=== PATIENT | female | born 1960 | race Caucasian/White ===

== ENCOUNTER 2024-06-21 07:39 | Inpatient (IN) ==
[2024-06-21] MEDS ORDERED: IOPAMIDOL 100 ML BOTTLE IV ONE (07:40)
[2024-06-21] MEDS ORDERED: DIATRIZOATE MEGLU/DIATRIZO SOD 30 ML BOTTLE PO ONE (07:40)
[2024-06-21] MEDS: ONDANSETRON 4 MG/2 ML VIAL IV ONE ×3 (08:14→15:00)
[2024-06-21] MEDS: 0.9 % SODIUM CHLORIDE 1,000 ML IV ONE (08:14)
[2024-06-21] MEDS: LORazepam 2 MG/ML VIAL IV ONE (08:15)
[2024-06-21] MEDS: METOCLOPRAMIDE 10 MG/2 ML VIAL IV ONE (08:19)
[2024-06-21] MEDS: DIATRIZOATE MEGLU/DIATRIZO SOD 120ML BOTTLE PO ONE (08:49)
[2024-06-21 08:57] LABS: Basophils # (Auto) 0.03 K/mcL (0.00-0.30); Basophils % (Auto) 0.1 % (0.0-2.0); Eosinophils # (Auto) 0.04 K/mcL (0.00-0.70); Eosinophils % (Auto) 0.2 % (0.0-7.0); Hemoglobin 14.6 g/dL (11.2-15.7); Lymphocytes # (Auto) 0.73 K/mcL (1.50-4.80); Lymphocytes % (Auto) 3.5 % (15.5-49.0); Mean Cell Volume 91.7 fL (80.0-100.0); Mean Corpuscular HGB Conc 33.2 g/dL (31.0-36.0); Mean Platelet Volume 10.4 fL (8.8-12.5); Monocytes # (Auto) 2.11 K/mcL (0.10-0.90); Monocytes % (Auto) 10.1 % (1.0-12.0); Neutrophils % (Auto) 85.6 % (38.0-78.0); Platelet Count 299 K/mcL (140-440); Red Cell Distribution Width 12.3 % (11.5-14.5); WBC 20.9 K/mcL (4.5-11.0)
[2024-06-21 09:24] LABS: ALT/SGPT 42 U/L (<40); AST/SGOT 20 U/L (<32); Albumin 3.8 gm/dL (3.2-5.2); Albumin/Globulin Ratio 1.4 (1.0-2.3); Alkaline Phosphatase 147 U/L (39-117); Bilirubin,Total 1.9 mg/dL (0.1-1.0); Blood Urea Nitrogen 27 mg/dL (8-23); Calcium 9.2 mg/dL (8.6-10.4); Carbon Dioxide 24 mmol/L (22-30); Chloride 95 mmol/L (96-108); Globulin 2.7 gm/dL (2.2-3.7); Glomerular Filtration Rate 67; Glucose 136 mg/dL (70-105); Potassium 4.9 mmol/L (3.3-5.1); Sodium 133 mmol/L (133-145)
[2024-06-21 10:56] LABS: Appearance,Urine Clear (Clear); Bilirubin,Urine Moderate mg/dL (Negative); Color,Urine Amber; Culture Indicated,Urine No; Glucose,Urine (UA) 100 mg/dL (Negative); Ketones,Urine 15 mg/dL (Negative); Leukocyte Esterase,Urine Negative /uL (Negative); Nitrate,Urine Negative (Negative); PH,Urine 5.5 (5.0-9.0); Protein,Urine 100 mg/dL (Negative); Specific Gravity,Urine >= 1.030 (1.000-1.035); Urine Blood Negative ery/mcL (Negative); Urine Granular Cast 5 /lph (0-0); Urine RBC 0 /hpf (0-3); Urine Squamous Epithelial Cell 1 /hpf (0-4); Urine WBC 0 /hpf (0-4); Urobilinogen,Urine >=8.0 mg/dL
[2024-06-21] MEDS: LIDOCAINE 2% URO-JET 10 ML JEL.PF.APP UR ONE (11:43)
[2024-06-21] MEDS ORDERED: IPRATROPIUM/ALBUTEROL 3 ML AMPUL.NEB NEB PRN (14:46)
[2024-06-21] MEDS: LACTATED RINGERS 1,000 ML IV SCH (15:00)
[2024-06-21] MEDS ORDERED: LACTATED RINGERS 1,000 ML IV SCH (15:00)
[2024-06-21] MEDS: DEXTROSE 5%-LR 1,000 ML IV SCH ×2 (17:04→20:56)
[2024-06-21] MEDS: PANTOPRAZOLE 40 MG VIAL IV SCH (17:04)
[2024-06-21] MEDS: CIPROFLOXACIN 400 MG/200 ML BAG IV SCH ×2 (17:32→17:50)
[2024-06-21] MEDS: metroNIDAZOLE 500 MG/100 ML BAG IV SCH ×2 (17:33→19:35)
[2024-06-21] MEDS: HYDROmorphone 0.5 MG/0.5 ML SYRINGE IV PRN (20:03)
[2024-06-22 06:45] LABS: Basophils # (Auto) 0.06 K/mcL (0.00-0.30); Basophils % (Auto) 0.4 % (0.0-2.0); Eosinophils # (Auto) 0.08 K/mcL (0.00-0.70); Eosinophils % (Auto) 0.5 % (0.0-7.0); Hematocrit 36.1 % (34.1-44.9); Hemoglobin 11.8 g/dL (11.2-15.7); Mean Corpuscular HGB Conc 32.7 g/dL (31.0-36.0); Mean Platelet Volume 10.4 fL (8.8-12.5); Monocytes # (Auto) 1.93 K/mcL (0.10-0.90); Monocytes % (Auto) 12.9 % (1.0-12.0); Neutrophils % (Auto) 81.7 % (38.0-78.0); Platelet Count 254 K/mcL (140-440); RBC 3.88 M/mcL (3.59-5.38); Red Cell Distribution Width 12.5 % (11.5-14.5)
[2024-06-22 06:59] LABS: ALT/SGPT 21 U/L (<40); AST/SGOT 11 U/L (<32); Albumin/Globulin Ratio 1.6 (1.0-2.3); Alkaline Phosphatase 104 U/L (39-117); Bilirubin,Direct 0.4 mg/dL (<0.3); Bilirubin,Total 0.6 mg/dL (0.1-1.0); Blood Urea Nitrogen 14 mg/dL (8-23); Calcium 7.7 mg/dL (8.6-10.4); Carbon Dioxide 24 mmol/L (22-30); Chloride 100 mmol/L (96-108); Globulin 1.9 gm/dL (2.2-3.7); Glomerular Filtration Rate 101; Glucose 154 mg/dL (70-105); Lactate Dehydrogenase 185 U/L (135-225); Potassium 3.8 mmol/L (3.3-5.1); Sodium 133 mmol/L (133-145); Triglycerides 116 mg/dL (<150); Uric Acid 2.8 mg/dL (2.5-8.0)
[2024-06-22] MEDS: IPRATROPIUM/ALBUTEROL 3 ML AMPUL.NEB NEB SCH (12:45)
[2024-06-22] MEDS: FUROSEMIDE 40 MG/4 ML VIAL IV ONE ×2 (13:30→22:20)
[2024-06-22] MEDS: POTASSIUM PHOSPHATE 40 MEQ in DEXTROSE 5% IN WATER 500 ML IV ONE (13:31)
[2024-06-22] MEDS: DEXTROSE 5%-LR 1,000 ML IV SCH ×2 (14:35→21:49)
[2024-06-22] MEDS: ACETAMINOPHEN 650 MG/65 ML BAG IV PRN (21:47)
[2024-06-22 22:41] LABS: Potassium 3.7 mmol/L (3.3-5.1)
[2024-06-23 06:58] LABS: Basophils # (Auto) 0.02 K/mcL (0.00-0.30); Basophils % (Auto) 0.2 % (0.0-2.0); Eosinophils # (Auto) 0.08 K/mcL (0.00-0.70); Eosinophils % (Auto) 0.6 % (0.0-7.0); Hematocrit 40.1 % (34.1-44.9); Hemoglobin 13.2 g/dL (11.2-15.7); Lymphocytes # (Auto) 0.54 K/mcL (1.50-4.80); Lymphocytes % (Auto) 4.2 % (15.5-49.0); Mean Corpuscular HGB Conc 32.9 g/dL (31.0-36.0); Mean Platelet Volume 10.5 fL (8.8-12.5); Monocytes # (Auto) 1.93 K/mcL (0.10-0.90); Monocytes % (Auto) 15.2 % (1.0-12.0); Neutrophils % (Auto) 79.3 % (38.0-78.0); Platelet Count 272 K/mcL (140-440); RBC 4.31 M/mcL (3.59-5.38); Red Cell Distribution Width 12.5 % (11.5-14.5); WBC 12.7 K/mcL (4.5-11.0)
[2024-06-23 07:03] LABS: ALT/SGPT 15 U/L (<40); AST/SGOT 8 U/L (<32); Albumin 3.1 gm/dL (3.2-5.2); Albumin/Globulin Ratio 1.4 (1.0-2.3); Alkaline Phosphatase 97 U/L (39-117); Bilirubin,Direct 0.3 mg/dL (<0.3); Bilirubin,Total 0.5 mg/dL (0.1-1.0); Blood Urea Nitrogen 8 mg/dL (8-23); Calcium 7.5 mg/dL (8.6-10.4); Carbon Dioxide 31 mmol/L (22-30); Chloride 93 mmol/L (96-108); Globulin 2.2 gm/dL (2.2-3.7); Glomerular Filtration Rate 96; Glucose 132 mg/dL (70-105); Lactate Dehydrogenase 173 U/L (135-225); Phosphorous 2.3 mg/dL (2.5-4.5); Potassium 3.5 mmol/L (3.3-5.1); Sodium 135 mmol/L (133-145); Triglycerides 79 mg/dL (<150); Uric Acid 3.3 mg/dL (2.5-8.0)
[2024-06-23] MEDS: FUROSEMIDE 40 MG/4 ML VIAL IV ONE (13:49)
[2024-06-23] MEDS: POTASSIUM PHOSPHATE 40 MEQ in DEXTROSE 5% IN WATER 500 ML IV ONE (13:50)
[2024-06-23] MEDS: 0.9 % SODIUM CHLORIDE 10 ML SYRINGE IV SCH (13:50)
[2024-06-23] MEDS ORDERED: LIDOCAINE 1% 10 ML VIAL SQ ONE (13:59)
[2024-06-23] MEDS ORDERED: SODIUM CHLORIDE IRRIG SOLUTION 500 ML BOTTLE IRR ONE (13:59)
[2024-06-24 07:44] LABS: Basophils # (Auto) 0.04 K/mcL (0.00-0.30); Basophils % (Auto) 0.3 % (0.0-2.0); Eosinophils # (Auto) 0.11 K/mcL (0.00-0.70); Eosinophils % (Auto) 0.9 % (0.0-7.0); Hematocrit 39.1 % (34.1-44.9); Lymphocytes # (Auto) 0.58 K/mcL (1.50-4.80); Lymphocytes % (Auto) 4.7 % (15.5-49.0); Mean Cell Volume 91.8 fL (80.0-100.0); Mean Corpuscular HGB Conc 33.2 g/dL (31.0-36.0); Mean Platelet Volume 10.7 fL (8.8-12.5); Monocytes # (Auto) 1.96 K/mcL (0.10-0.90); Monocytes % (Auto) 15.9 % (1.0-12.0); Neutrophils % (Auto) 77.2 % (38.0-78.0); Platelet Count 271 K/mcL (140-440); RBC 4.26 M/mcL (3.59-5.38); Red Cell Distribution Width 12.6 % (11.5-14.5); WBC 12.4 K/mcL (4.5-11.0)
[2024-06-24] MEDS: CALCIUM GLUCONATE 4.65 MEQ in DEXTROSE 5% IN WATER 50 ML IV ONE (09:10)
[2024-06-24 10:37] LABS: ALT/SGPT < 5 U/L (<40); AST/SGOT 9 U/L (<32); Albumin 2.9 gm/dL (3.2-5.2); Albumin/Globulin Ratio 1.1 (1.0-2.3); Alkaline Phosphatase 81 U/L (39-117); Bilirubin,Direct < 0.2 mg/dL (0-0.3); Bilirubin,Total 0.4 mg/dL (0.1-1.0); Blood Urea Nitrogen 5 mg/dL (8-23); Carbon Dioxide 30 mmol/L (22-30); Chloride 92 mmol/L (96-108); Globulin 2.6 gm/dL (2.2-3.7); Glomerular Filtration Rate 109; Glucose 206 mg/dL (70-105); Lactate Dehydrogenase 160 U/L (135-225); Phosphorous 1.3 mg/dL (2.5-4.5); Potassium 3.3 mmol/L (3.3-5.1); Sodium 130 mmol/L (133-145); Triglycerides 52 mg/dL (<150); Uric Acid 2.7 mg/dL (2.5-8.0)
[2024-06-24] MEDS: FUROSEMIDE 40 MG/4 ML VIAL IV ONE (17:00)
[2024-06-24] MEDS: POTASSIUM PHOSPHATE 40 MEQ in DEXTROSE 5% IN WATER 500 ML IV ONE (17:18)
[2024-06-25] MEDS: FUROSEMIDE 40 MG/4 ML VIAL IV ONE (00:27)
[2024-06-25 06:52] LABS: ALT/SGPT < 5 U/L (<40); AST/SGOT 12 U/L (<32); Albumin 3.1 gm/dL (3.2-5.2); Albumin/Globulin Ratio 1.1 (1.0-2.3); Alkaline Phosphatase 81 U/L (39-117); Bilirubin,Direct < 0.2 mg/dL (0-0.3); Bilirubin,Total 0.3 mg/dL (0.1-1.0); Blood Urea Nitrogen 5 mg/dL (8-23); Carbon Dioxide 31 mmol/L (22-30); Chloride 92 mmol/L (96-108); Globulin 2.9 gm/dL (2.2-3.7); Glomerular Filtration Rate 109; Glucose 135 mg/dL (70-105); Lactate Dehydrogenase 157 U/L (135-225); Phosphorous 2.8 mg/dL (2.5-4.5); Potassium 3.3 mmol/L (3.3-5.1); Sodium 133 mmol/L (133-145); Triglycerides 67 mg/dL (<150); Uric Acid 3.2 mg/dL (2.5-8.0)
[2024-06-25 06:56] LABS: Basophils # (Auto) 0.04 K/mcL (0.00-0.30); Basophils % (Auto) 0.3 % (0.0-2.0); Eosinophils % (Auto) 1.6 % (0.0-7.0); Hemoglobin 13.7 g/dL (11.2-15.7); Lymphocytes # (Auto) 0.92 K/mcL (1.50-4.80); Lymphocytes % (Auto) 7.3 % (15.5-49.0); Mean Cell Volume 93.1 fL (80.0-100.0); Mean Corpuscular HGB Conc 32.6 g/dL (31.0-36.0); Mean Platelet Volume 10.4 fL (8.8-12.5); Monocytes # (Auto) 2.04 K/mcL (0.10-0.90); Monocytes % (Auto) 16.2 % (1.0-12.0); Neutrophils % (Auto) 72.6 % (38.0-78.0); Platelet Count 356 K/mcL (140-440); RBC 4.51 M/mcL (3.59-5.38); Red Cell Distribution Width 12.5 % (11.5-14.5); WBC 12.6 K/mcL (4.5-11.0)
[2024-06-25] MEDS: POTASSIUM CHLORIDE 40 MEQ in DEXTROSE 5% IN WATER 500 ML IV SCH (09:36)
[2024-06-25] MEDS: ONDANSETRON 4 MG/2 ML VIAL IV PRN (10:28)
[2024-06-25] MEDS ORDERED: DIATRIZOATE MEGLU/DIATRIZO SOD 120ML BOTTLE PO ONE (14:08)
[2024-06-25] MEDS: CALCIUM GLUCONATE 4.65 MEQ in DEXTROSE 5% IN WATER 50 ML IV SCH (15:10)
[2024-06-26 06:51] LABS: Basophils # (Auto) 0.04 K/mcL (0.00-0.30); Basophils % (Auto) 0.3 % (0.0-2.0); Eosinophils # (Auto) 0.31 K/mcL (0.00-0.70); Eosinophils % (Auto) 2.2 % (0.0-7.0); Hematocrit 44.6 % (34.1-44.9); Hemoglobin 14.3 g/dL (11.2-15.7); Lymphocytes # (Auto) 1.33 K/mcL (1.50-4.80); Lymphocytes % (Auto) 9.4 % (15.5-49.0); Mean Cell Volume 95.1 fL (80.0-100.0); Mean Corpuscular HGB Conc 32.1 g/dL (31.0-36.0); Monocytes # (Auto) 2.35 K/mcL (0.10-0.90); Monocytes % (Auto) 16.7 % (1.0-12.0); Neutrophils % (Auto) 67.4 % (38.0-78.0); Platelet Count 422 K/mcL (140-440); RBC 4.69 M/mcL (3.59-5.38); Red Cell Distribution Width 12.2 % (11.5-14.5); WBC 14.1 K/mcL (4.5-11.0)
[2024-06-26 07:36] LABS: ALT/SGPT 5 U/L (<40); AST/SGOT 15 U/L (<32); Albumin 2.9 gm/dL (3.2-5.2); Alkaline Phosphatase 78 U/L (39-117); Bilirubin,Direct < 0.2 mg/dL (0-0.3); Bilirubin,Total 0.4 mg/dL (0.1-1.0); Blood Urea Nitrogen 6 mg/dL (8-23); Carbon Dioxide 27 mmol/L (22-30); Chloride 95 mmol/L (96-108); Glomerular Filtration Rate 109; Glucose 117 mg/dL (70-105); Lactate Dehydrogenase 206 U/L (135-225); Phosphorous 2.5 mg/dL (2.5-4.5); Sodium 132 mmol/L (133-145); Triglycerides 69 mg/dL (<150); Uric Acid 2.8 mg/dL (2.5-8.0)
[2024-06-26] MEDS: CALCIUM GLUCONATE 9.3 MEQ in DEXTROSE 5% IN WATER 100 ML IV SCH (10:15)
[2024-06-26] MEDS: CALCIUM GLUCONATE 4.65 MEQ/10 ML VIAL IV ONE (10:23)
[2024-06-26] MEDS: ALBUMIN HUMAN 12.5 GM/50 ML VIAL IV SCH (15:10)
[2024-06-26] MEDS: FUROSEMIDE 40 MG/4 ML VIAL IV SCH (15:10)
[2024-06-26] MEDS ORDERED: SUMAtriptan SUCCINATE 50 MG TABLET PO PRN (21:14)
[2024-06-26] MEDS: ALPRAZolam 0.25 MG TABLET PO PRN (22:35)
[2024-06-26] MEDS: GABAPENTIN 300 MG CAPSULE PO SCH (22:35)
[2024-06-26] MEDS: MELATONIN 3 MG TABLET PO SCH (22:35)
[2024-06-26] MEDS: MELATONIN 3 MG TABLET PO ONE (22:36)
[2024-06-26] MEDS: chlorproMAZINE 25 MG TABLET PO SCH (22:36)
[2024-06-27 06:30] LABS: Basophils # (Auto) 0.06 K/mcL (0.00-0.30); Basophils % (Auto) 0.4 % (0.0-2.0); Eosinophils # (Auto) 0.56 K/mcL (0.00-0.70); Eosinophils % (Auto) 4.1 % (0.0-7.0); Hematocrit 41.1 % (34.1-44.9); Hemoglobin 13.5 g/dL (11.2-15.7); Lymphocytes # (Auto) 1.18 K/mcL (1.50-4.80); Lymphocytes % (Auto) 8.7 % (15.5-49.0); Mean Cell Volume 91.3 fL (80.0-100.0); Mean Corpuscular HGB Conc 32.8 g/dL (31.0-36.0); Mean Platelet Volume 9.9 fL (8.8-12.5); Monocytes # (Auto) 1.73 K/mcL (0.10-0.90); Monocytes % (Auto) 12.8 % (1.0-12.0); Neutrophils % (Auto) 70.1 % (38.0-78.0); Platelet Count 452 K/mcL (140-440); WBC 13.6 K/mcL (4.5-11.0)
[2024-06-27] MEDS: OMEPRAZOLE 20 MG CAPSULE PO SCH (07:30)
[2024-06-27] MEDS: LEVOTHYROXINE 25 MCG TABLET PO SCH (07:30)
[2024-06-27 07:37] LABS: ALT/SGPT 6 U/L (<40); AST/SGOT 16 U/L (<32); Albumin 3.2 gm/dL (3.2-5.2); Albumin/Globulin Ratio 1.1 (1.0-2.3); Alkaline Phosphatase 70 U/L (39-117); Bilirubin,Direct < 0.2 mg/dL (0-0.3); Bilirubin,Total 0.3 mg/dL (0.1-1.0); Blood Urea Nitrogen 5 mg/dL (8-23); Calcium 8.7 mg/dL (8.6-10.4); Carbon Dioxide 30 mmol/L (22-30); Chloride 95 mmol/L (96-108); Globulin 2.8 gm/dL (2.2-3.7); Glomerular Filtration Rate 109; Glucose 104 mg/dL (70-105); Lactate Dehydrogenase 155 U/L (135-225); Phosphorous 3.5 mg/dL (2.5-4.5); Potassium 3.3 mmol/L (3.3-5.1); Sodium 134 mmol/L (133-145); Triglycerides 72 mg/dL (<150); Uric Acid 3.1 mg/dL (2.5-8.0)
[2024-06-27] MEDS ORDERED: LEVOTHYROXINE 25 MCG PO SCH (09:00)
[2024-06-27] MEDS: LIDOCAINE 4% TOP PATCH TOPICAL SCH (09:20)
[2024-06-27] MEDS: hydrOXYzine 25 MG TABLET PO SCH (09:21)
[2024-06-27] MEDS: buPROPion 100 MG TAB.SR.12H PO SCH (09:21)
[2024-06-27] MEDS: BISOPROLOL 5 MG TABLET PO SCH (09:21)
[2024-06-27] MEDS: ATORVASTATIN 10 MG TABLET PO SCH (09:21)
[2024-06-27] MEDS: OXYBUTYNIN CHLORIDE 5 MG TABLET PO SCH (09:21)
[2024-06-27] MEDS: carBAMazepine 200 MG TABLET PO SCH (09:36)
[2024-06-27] MEDS ORDERED: 0.9 % SODIUM CHLORIDE 10 ML SYRINGE IV PRN (16:02)
[2024-06-27] MEDS: 0.9 % SODIUM CHLORIDE 10 ML SYRINGE IV SCH (21:13)
== END 2024-06-28 12:05 | DRG 392 ==
LOC: ED 07:39 → MEDSUR 16:24
PROVIDERS: ADMIT Student in an Organized Health Care Education/Training Program; ATTEND Surgery Surgical Critical Care